=== PATIENT | female | born 2000 | race Caucasian/White ===

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

== ENCOUNTER 2018-11-22 16:15 | Emergency (ER) | payer OTHER ==
[~2018-11-22] VITALS: Ht 165.1 cm; Wt 83.2 kg
[2018-11-22 16:21] VITALS: BP 140/79; TEMP 99.2
[2018-11-22] MEDS ORDERED: ZITHROMAX Z PA250 MG PO (17:59)
[2018-11-22] MEDS ORDERED: PREDNISONE20 MG PO (17:59)
[2018-11-22] MEDS ORDERED: PROAIR HFA0.09 MG/AC IH (18:38)
[2018-11-22 19:19] VITALS: PULSE 94
== END 2018-11-22 19:19 | disposition home or self-care (01) ==
LOC: COL.ER 16:15
DX: J45.909 Unspecified asthma, uncomplicated (principal)
CPT/HCPCS: J7512

== ENCOUNTER 2019-03-04 10:13 | Emergency (ER) | payer SELFPAY ==
[~2019-03-04] VITALS: Ht 165.1 cm; Wt 81.8 kg
[~2019-03-04 10:13] MED LIST changes: +PREDNISONE20 MG PO; +PROAIR HFA0.09 MG/AC IH; +ZITHROMAX Z PA250 MG PO
[2019-03-04 10:20] VITALS: BP 128/65; TEMP 98.6
[2019-03-04] MEDS ORDERED: ILOTYCIN5 MG/GM OP (11:37)
[2019-03-04 11:53] VITALS: PULSE 78
== END 2019-03-04 11:53 | disposition home or self-care (01) ==
LOC: COL.ER 10:13
DX: S09.90XA Unspecified injury of head, initial encounter (principal); H02.846 Edema of left eye, unspecified eyelid; W01.198A Fall on same level from slipping, tripping and stumbling with subsequent striking against other object, initial encounter; Y92.009 Unspecified place in unspecified non-institutional (private) residence as the place of occurrence of the external cause

== ENCOUNTER 2020-03-08 14:55 | Emergency (ER) | payer SELFPAY ==
[~2020-03-08] VITALS: Ht 165.1 cm; Wt 84.1 kg
[~2020-03-08 14:55] MED LIST changes: +ILOTYCIN5 MG/GM OP
[2020-03-08 15:07] VITALS: BP 124/70; TEMP 98.2
[2020-03-08] MEDS ORDERED: TRIAMCINOLONE A15 G2 TP (15:32)
[2020-03-08 15:52] VITALS: PULSE 62
== END 2020-03-08 15:52 | disposition home or self-care (01) ==
LOC: COL.ER 14:55
DX: L20.9 Atopic dermatitis, unspecified (principal); F32.9 Major depressive disorder, single episode, unspecified; Z79.51 Long term (current) use of inhaled steroids

== ENCOUNTER 2020-04-20 11:02 | Emergency (ER) | payer SELFPAY ==
[~2020-04-20] VITALS: Ht 165.1 cm; Wt 81.8 kg
[~2020-04-20 11:02] MED LIST changes: +TRIAMCINOLONE A15 G2 TP
[2020-04-20 11:20] VITALS: TEMP 97.3
[2020-04-20 13:45] VITALS: BP 115/73; PULSE 73
== END 2020-04-20 13:45 | disposition home or self-care (01) ==
LOC: COL.ER 11:02
DX: S63.601A Unspecified sprain of right thumb, initial encounter (principal); X50.9XXA Other and unspecified overexertion or strenuous movements or postures, initial encounter

== ENCOUNTER → 2020-07-25 | Emergency (ER) | payer SELFPAY ==
[~2020-07-25] VITALS: Ht 165.1 cm; Wt 81.8 kg
[~2020-07-25] MED LIST changes: +AMOXICILLIN 8751 TAB PO
[2020-07-25 14:06] VITALS: BP 102/67; TEMP 98.4
[2020-07-25 15:11] VITALS: PULSE 70
== END ==
LOC: COL.ER 13:39
DX: R51.9 Headache, unspecified (principal); Z88.1 Allergy status to other antibiotic agents; Z88.8 Allergy status to other drugs, medicaments and biological substances; Z79.51 Long term (current) use of inhaled steroids

== ENCOUNTER 2021-02-05 16:42 | Emergency (ER) | payer SELFPAY ==
[~2021-02-05] VITALS: Ht 165.1 cm; Wt 65.9 kg
[2021-02-05 16:55] VITALS: TEMP 98.1
[2021-02-05 17:40] LABS: BASO # 0.1 K/mm3 (0.0-0.2); BASO % 0.6 % (0.0-2.0); EOS # 0.6 K/mm3 (0.0-0.7); EOS % 6.2 % (0-4.0); GRAN # 4.7 K/mm3 (1.4-6.5); HEMATOCRIT 38.4 % (37.0-47.0); HEMOGLOBIN 13.1 g/dl (12.5-16.0); LYMPH # 2.9 K/mm3 (1.2-3.4); LYMPH % 32.2 % (20.0-51.0); MEAN CELL VOLUME 84 fl (80.0-100.0); MEAN CORPUSCULAR HEMOGLOBIN 29 pg (27.0-31.0); MEAN CORPUSCULAR HGB CONC 34 g/dl (33.0-37.0); MEAN PLATELET VOLUME 9.8 fl (7.4-10.4); MONO # 0.7 K/mm3 (0.1-0.6); MONO % 7.8 % (1.7-9.3); PLATELET COUNT 337 K/mm3 (130-400); RED BLOOD COUNT 4.57 M/mm3 (4.10-5.30); REDCELL DISTRIBUTION WIDTH-CV 13.2 % (11.5-14.5)
[2021-02-05 18:06] LABS: ALBUMIN 4.3 gm/dL (3.5-5.0); BILIRUBIN,TOTAL 0.2 mg/dL (0.2-1.2); CALCIUM 9.2 mg/dL (8.4-10.2); CREATININE, serum 0.86 mg/dL (0.57-1.11); POTASSIUM 3.9 mmol/L (3.5-4.5); TOTAL PROTEIN 6.8 gm/dL (6.2-8.1)
[2021-02-05 18:58] VITALS: BP 105/73; PULSE 66
== END 2021-02-05 19:00 | disposition home or self-care (01) ==
LOC: COL.ER 16:42
PROVIDERS: Nurse Practitioner
DX: R55 Syncope and collapse (principal)

== ENCOUNTER 2021-04-07 22:17 | Emergency (ER) | payer SELFPAY ==
[~2021-04-07] VITALS: Ht 165.1 cm; Wt 68.2 kg
[2021-04-07 22:18] VITALS: TEMP 97.7
[2021-04-07 23:07] LABS: BASO # 0.1 K/mm3 (0.0-0.2); BASO % 0.7 % (0.0-2.0); EOS # 0.8 K/mm3 (0.0-0.7); EOS % 7.1 % (0.0-4.0); GRAN # 5.4 K/mm3 (1.4-6.5); GRAN % 51.1 % (42.2-75.2); HEMOGLOBIN 11.8 g/dl (12.5-16.0); LYMPH # 3.4 K/mm3 (1.2-3.4); LYMPH % 32.5 % (20.0-51.0); MEAN CELL VOLUME 87 fl (80.0-100.0); MEAN CORPUSCULAR HEMOGLOBIN 29 pg (27-31); MEAN CORPUSCULAR HGB CONC 33 g/dl (33.0-37.0); MEAN PLATELET VOLUME 9.1 fl (7.4-10.4); MONO # 0.8 K/mm3 (0.1-0.6); PLATELET COUNT 326 K/mm3 (130-400); REDCELL DISTRIBUTION WIDTH-CV 13.4 % (11.5-14.5)
[2021-04-07 23:12] LABS: HEMATOCRIT 35.7 % (37.0-47.0)
[2021-04-07 23:25] LABS: ALBUMIN 3.4 gm/dL (3.5-5.0); BILIRUBIN,TOTAL 0.2 mg/dL (0.2-1.2); CREATININE, serum 0.71 mg/dL (0.57-1.11); POTASSIUM 3.4 mmol/L (3.5-4.5); TOTAL PROTEIN 5.9 gm/dL (6.2-8.1)
[2021-04-08 00:53] VITALS: BP 102/57; PULSE 82
== END 2021-04-08 00:53 | disposition home or self-care (01) ==
LOC: COL.ER 22:17
PROVIDERS: Personal Emergency Response Attendant
DX: S09.90XA Unspecified injury of head, initial encounter (principal); W22.8XXA Striking against or struck by other objects, initial encounter
CPT/HCPCS: J2270; J2405; J7030

== ENCOUNTER 2021-07-04 15:07 | Emergency (ER) | payer SELFPAY ==
[~2021-07-04] VITALS: Ht 165.1 cm; Wt 72.7 kg
[2021-07-04 15:15] VITALS: BP 137/68; TEMP 97.1
[2021-07-04 17:18] VITALS: PULSE 78
== END 2021-07-04 17:20 | disposition home or self-care (01) ==
LOC: COL.ER 15:07
DX: S93.401A Sprain of unspecified ligament of right ankle, initial encounter (principal); S93.601A Unspecified sprain of right foot, initial encounter; X50.1XXA Overexertion from prolonged static or awkward postures, initial encounter

== ENCOUNTER 2023-09-07 07:58 | Emergency (ER) | payer SELFPAY ==
[~2023-09-07] VITALS: Ht 165.1 cm; Wt 75.0 kg
[~2023-09-07 07:58] MED LIST changes: +ZOFRAN ODT4 MG PO
[2023-09-07 08:02] VITALS: TEMP 98.1
[2023-09-07] MEDS ORDERED: Albuterol/Ipratropium 3 MG-0.5 MG/3 ML Neb Soln IH ONE (08:15)
[2023-09-07] MEDS ORDERED: methylPREDNISolone Sod Succ 125 MG/2 ML VIAL IV ONE (08:15)
[2023-09-07 08:57] LABS: BASO # 0.1 K/mm3 (0.0-0.2); BASO % 0.6 % (0.0-2.0); EOS # 1.1 K/mm3 (0.0-0.7); EOS % 8.5 % (0.0-4.0); GRAN # 8.8 K/mm3 (1.4-6.5); GRAN % 67.7 % (42.2-75.2); HEMATOCRIT 41.1 % (37.0-47.0); HEMOGLOBIN 13.7 g/dl (12.5-16.0); LYMPH # 2.3 K/mm3 (1.2-3.4); LYMPH % 17.8 % (20.0-51.0); MEAN CELL VOLUME 86 fl (80.0-100.0); MEAN CORPUSCULAR HEMOGLOBIN 29 pg (27-31); MEAN CORPUSCULAR HGB CONC 33 g/dl (33.0-37.0); MEAN PLATELET VOLUME 9.5 fl (7.4-10.4); MONO # 0.7 K/mm3 (0.1-0.6); MONO % 5.1 % (1.7-9.3); PLATELET COUNT 373 K/mm3 (130-400); REDCELL DISTRIBUTION WIDTH-CV 13.2 % (11.5-14.5)
[2023-09-07 09:18] LABS: ALBUMIN 3.9 g/dL (3.5-5.0); BILIRUBIN,TOTAL 0.6 mg/dL (0.2-1.2); CALCIUM 9.7 mg/dL (8.4-10.2); CREATININE, serum 0.76 mg/dL (0.57-1.11); POTASSIUM 4.1 mEq/L (3.5-4.5); TOTAL PROTEIN 7.1 g/dl (6.2-8.1)
[2023-09-07 10:58] VITALS: BP 123/74; PULSE 84
== END 2023-09-07 11:01 | disposition home or self-care (01) ==
LOC: COL.ER 07:58
PROVIDERS: Family Medicine
DX: J45.909 Unspecified asthma, uncomplicated (principal)
CPT/HCPCS: J2919; J3475

== ENCOUNTER 2023-09-25 09:38 | Emergency (ER) | payer OTHER ==
[~2023-09-25] VITALS: Ht 165.1 cm; Wt 77.3 kg
[2023-09-25] MEDS ORDERED: Albuterol/Ipratropium 3 MG-0.5 MG/3 ML Neb Soln IH SCH (10:15)
[2023-09-25 10:20] LABS: BASO # 0.1 K/mm3 (0.0-0.2); BASO % 0.5 % (0.0-2.0); EOS # 0.8 K/mm3 (0.0-0.7); EOS % 5.8 % (0.0-4.0); GRAN # 9.1 K/mm3 (1.4-6.5); GRAN % 68.2 % (42.2-75.2); HEMATOCRIT 41.5 % (37.0-47.0); HEMOGLOBIN 13.5 g/dl (12.5-16.0); LYMPH # 2.6 K/mm3 (1.2-3.4); LYMPH % 19.1 % (20.0-51.0); MEAN CELL VOLUME 85 fl (80.0-100.0); MEAN CORPUSCULAR HEMOGLOBIN 28 pg (27-31); MEAN CORPUSCULAR HGB CONC 33 g/dl (33.0-37.0); MEAN PLATELET VOLUME 9.2 fl (7.4-10.4); MONO # 0.8 K/mm3 (0.1-0.6); PLATELET COUNT 387 K/mm3 (130-400); RED BLOOD COUNT 4.89 M/mm3 (4.10-5.30)
[2023-09-25 10:36] LABS: ALANINE AMINOTRANSFERASE 20 U/L (0-55); ALBUMIN 3.6 g/dL (3.5-5.0); ALKALINE PHOSPHATASE 83 U/L (40-150); ANION GAP 11 mmol/L (7-16); AST,SGOT 13 U/L (5-34); BILIRUBIN,TOTAL 0.5 mg/dL (0.2-1.2); BLOOD UREA NITROGEN 6 mg/dL (7-19); CHLORIDE 108 mEq/L (98-107); CREATININE, serum 0.75 mg/dL (0.57-1.11); GLUCOSE 124 mg/dL (70-99); POTASSIUM 3.6 mEq/L (3.5-4.5); SODIUM 138 mEq/L (136-145); TOTAL PROTEIN 7.7 g/dl (6.2-8.1)
[2023-09-25 10:44] LABS: TROPONIN-I < 0.010 ng/mL (0.00-0.033)
[2023-09-25] MEDS ORDERED: methylPREDNISolone Sod Succ 125 MG/2 ML VIAL IV ONE (11:00)
[2023-09-25] MEDS ORDERED: NS 1,000 ML IV ONE (11:00)
[2023-09-25] MEDS ORDERED: RT ADVAIR HFA 1112 G IH (12:04)
[2023-09-25] MEDS ORDERED: PREDNISONE20 MG PO (12:04)
[2023-09-25 12:16] VITALS: BP 130/84; PULSE 101; TEMP 98.5
== END 2023-09-25 12:16 | disposition home or self-care (01) ==
LOC: COL.ER 09:38
PROVIDERS: Physician Assistant
DX: J45.901 Unspecified asthma with (acute) exacerbation (principal)
CPT/HCPCS: J2919; J7030

== ENCOUNTER 2023-09-25 16:20 | Emergency (ER) | payer OTHER ==
[~2023-09-25] VITALS: Ht 165.1 cm; Wt 77.3 kg
[~2023-09-25 16:20] MED LIST changes: +RT ADVAIR HFA 1112 G IH
[2023-09-25] MEDS ORDERED: Levalbuterol Neb Soln 1.25 MG/3 ML UD IH ONE (16:45)
[2023-09-25] MEDS ORDERED: diphenhydrAMINE 50 MG/ML 1 ML VIAL IV ONE ×2 (16:45→17:00)
[2023-09-25] MEDS ORDERED: methylPREDNISolone Sod Succ 125 MG/2 ML VIAL IV ONE (16:45)
[2023-09-25] MEDS ORDERED: NS 1,000 ML IV ONE ×2 (16:45→18:30)
[2023-09-25] MEDS ORDERED: LORazepam 2 MG/ML 1 ML VIAL IV ONE (17:00)
[2023-09-25 19:58] VITALS: BP 115/79; PULSE 116; TEMP 98.7
== END 2023-09-25 20:00 | disposition home or self-care (01) ==
LOC: COL.ER 16:20
DX: T78.40XA Allergy, unspecified, initial encounter (principal); R00.0 Tachycardia, unspecified; Z87.891 Personal history of nicotine dependence
CPT/HCPCS: J1200; J2060; J2919; J7030

== ENCOUNTER 2023-10-08 13:27 | Inpatient (IN) | payer OTHER ==
[2023-10-07 20:00] VITALS: BP 119/70; PULSE 137; TEMP 98.4
[2023-10-08] VITALS (115 sets, daily range): BP systolic 135–137; BP diastolic 76–79; PULSE 124–134; TEMP 98.1–98.2; O2SAT 90–97
[~2023-10-08] VITALS: Ht 165.1 cm; Wt 84.6 kg
[2023-10-08 13:59] LABS: BASO # 0.1 K/mm3 (0.0-0.2); BASO % 0.5 % (0.0-2.0); EOS # 1.9 K/mm3 (0.0-0.7); EOS % 10.3 % (0.0-4.0); GRAN # 11.5 K/mm3 (1.4-6.5); HEMOGLOBIN 13.6 g/dl (12.5-16.0); LYMPH # 3.4 K/mm3 (1.2-3.4); LYMPH % 18.6 % (20.0-51.0); MEAN CELL VOLUME 85 fl (80.0-100.0); MEAN CORPUSCULAR HEMOGLOBIN 28 pg (27-31); MEAN CORPUSCULAR HGB CONC 32 g/dl (33.0-37.0); MONO # 1.3 K/mm3 (0.1-0.6); MONO % 7.2 % (1.7-9.3); PLATELET COUNT 470 K/mm3 (130-400); RED BLOOD COUNT 4.92 M/mm3 (4.10-5.30); REDCELL DISTRIBUTION WIDTH-CV 12.8 % (11.5-14.5)
[2023-10-08] MEDS ORDERED: Ipratropium 0.02% Neb Soln 0.5 MG/2.5 ML UD IH ONE (14:00)
[2023-10-08] MEDS ORDERED: dexAMETHasone 4 MG TAB PO ONE (14:00)
[2023-10-08] MEDS ORDERED: LR 1,000 ML IV ONE (14:00)
[2023-10-08] MEDS ORDERED: Albuterol 0.083% Neb Soln 2.5 MG/3 ML UD IH ONE ×2 (14:00→14:30)
[2023-10-08 14:14] LABS: ALBUMIN 3.9 g/dL (3.5-5.0); BILIRUBIN,TOTAL 0.3 mg/dL (0.2-1.2); CALCIUM 9.6 mg/dL (8.4-10.2); CREATININE, serum 0.78 mg/dL (0.57-1.11); POTASSIUM 4.1 mEq/L (3.5-4.5); TOTAL PROTEIN 7.4 g/dl (6.2-8.1)
[2023-10-08] MEDS ORDERED: Azithromycin 250 MG TAB PO ONE (14:30)
[2023-10-08] MEDS ORDERED: BUSPAR5 MG PO (15:38)
[2023-10-08] MEDS ORDERED: PROAIR HFA0.09 MG/AC IH (15:40)
[2023-10-08] MEDS ORDERED: Doxycycline Monohydrate 100 MG CAP PO SCH (15:56)
[2023-10-08] MEDS ORDERED: Acetaminophen 500 MG TAB PO PRN (16:00)
[2023-10-08] MEDS ORDERED: 1/2 NS 1,000 ML IV SCH (16:00)
[2023-10-08] MEDS ORDERED: Albuterol/Ipratropium 3 MG-0.5 MG/3 ML Neb Soln IH PRN (16:00)
[2023-10-08] MEDS ORDERED: Ondansetron 4 MG/2 ML VIAL IV PRN (16:00)
--- NOTE | 2023-10-08 16:00 | NUR ---
Patient arrived from ER at approximately this time. Patient experiencing SOA, on 2L /. patient is tachycardic,Patient unable to complete sentences and reports not eating at times due to difficulty breathing. Patient reports chest pain/ pressure that worsen when deep breathing.Patient intake assessment completed. call light within reach, bed at lowest position.
[2023-10-08] MEDS ORDERED: cefTRIAXone 1 G in Water For Injection,Sterile 10 ML IV SCH (16:30)
[2023-10-08 16:55] LABS: ARTERIAL BLD GAS O2 SATURATION 93.2 % (92-100); ARTERIAL BLD GAS TCO2 CT 20.1; ARTERIAL BLOOD GAS BASE EXCESS -3.4 (-2-2); ARTERIAL BLOOD GAS HCO3 19.2 meq/L (22-26); ARTERIAL BLOOD GAS PCO2 28.3 mmHg (35-45); ARTERIAL BLOOD GAS pH 7.45 (7.35-7.45)
[2023-10-08] MEDS ORDERED: LORazepam 2 MG/ML 1 ML VIAL IV PRN (17:15)
[2023-10-08] MEDS ORDERED: Iohexol 300 - 100 ML VIAL IV ONE (17:48)
[2023-10-08] MEDS ORDERED: NS 50 ML IV SCH (17:48)
--- NOTE | 2023-10-08 18:09 | NUR ---
patient transfered to ICU and bedside report given to nurse taking care of patient.
--- NOTE | 2023-10-08 18:21 | NUR ---
Pt arrived to ICU at 1800 with YOBANY Ybarra at bedside. Pt taken to CT scan before arrival to ICU. Pt settled in bed after using bathroom. Urine sample obtained. YOBANY Espino provided bedside report after getting pt settled in room. Pt is pleasant and cooperative. Pt does not have any complaints of pain or discomfort at this time. 1815 Oxygen amount increased to 4 L per nasal cannula from 2 L via nasal cannula
[2023-10-08] MEDS ORDERED: ATIVAN 1MG T1 MG/TAB PO (18:32)
--- NOTE | 2023-10-08 18:33 | NUR ---
Pt has a prescription for ativan and verbalizes that she is supposed to take it. Pt verbalized that she is unable to afford the medication, so she has not been taking it for a month.
[2023-10-08] MEDS ORDERED: Albuterol/Ipratropium 3 MG-0.5 MG/3 ML Neb Soln IH SCH (19:00)
--- NOTE | 2023-10-08 20:01 | NUR ---
PATIENT RESTING IN BED, WITH FAMILY AT BEDSIDE. PATIENT IS ANXIOUS AND TACHYCARDIC. IV IN RIGHT AC WITH FLUIDS RUNNING. PATIENT IS A STAND BY ASSIST. NO ACUTE EVENTS.
[2023-10-08] MEDS ORDERED: busPIRone 5 MG TAB PO SCH (21:00)
[2023-10-08] MEDS ORDERED: LORazepam 2 MG/ML 1 ML VIAL IV ONE (22:00)
[2023-10-09] VITALS (309 sets, daily range): BP systolic 106–128; BP diastolic 65–87; PULSE 98–117; TEMP 97.5–98.6; O2SAT 86–99
--- NOTE | 2023-10-09 00:16 | NUR ---
PATIENT EXPLAINED TO THIS RN, THAT SHE FEELS LIKE SHE HAS BEEN IGNORED WITH HER BREATHING CONCERNS THE LAST TWO MONTHS AND EXPRESSES FEAR OVER NOT BEING ABLE TO BREATHE. PATIENT STATES SHE DOES NOT HAVE ENOUGH MONEY FOR AN INHALER. THIS RN INFORMED THE PATIENT THAT [facility] HAS RESOURCES FOR THIS AND OUTSIDE SALESPERSON CAN ASSIST HER WITH THESE ISSUES. SHE EXPLAINS SHE HAS CHEST PAIN IN HER STERNUM RATED 5/10 FOR PAIN, THAT FEELS LIKE SOMEONE IS PICKING HER UP AND SQUEEZING HER CHEST AND RADIATES TO BELOW HER BREASTS. TALKING AND EXERTION MAKES THE PAIN WORSE. PT SAYS WHEN GOING TO THE BATHROOM AT HOME SHE HAS TO STOP AND CATCH HER BREATH TWICE. SHE STATED WHEN DOING HER HAIR, HER SPO2 DROPPED TO 85% ACCORDING TO HER PULSE OX AT HOME. PT SAYS THIS FEELS LIKE MORE THAN ASTHMA AND ALLERGIES. PATIENT VISIBLY DISTRESSED AND SHORT OF BREATH DURING OUR CONVERSATION. PATIENT UNABLE TO TOLERATE CPAP DUE TO HER ANXIETY AND CLAUSTROPHOBIA, PATIENT SPO2 WAS FINE ON NASAL CANNULA. PATIENT RESTING HEART RATE IN THE 120'S EVEN WHILE SLEEPING (WITHOUT ALBUTEROL), THIS RN WONDERING IF PATIENT HAS CARDIAC ISSUES.
--- NOTE | 2023-10-09 03:24 | NUR ---
PT REFUSED TO WEAR CPAP.PT STATED SHE IS CLAUSTROPOBIC.
[2023-10-09 04:43] LABS: BASO % 0.1 % (0.0-2.0); GRAN % 85.5 % (42.2-75.2); HEMOGLOBIN 11.7 g/dl (12.5-16.0); LYMPH # 1.3 K/mm3 (1.2-3.4); LYMPH % 8.7 % (20.0-51.0); MEAN CELL VOLUME 85 fl (80.0-100.0); MEAN CORPUSCULAR HEMOGLOBIN 27 pg (27-31); MEAN CORPUSCULAR HGB CONC 32 g/dl (33.0-37.0); MEAN PLATELET VOLUME 9.1 fl (7.4-10.4); MONO # 0.8 K/mm3 (0.1-0.6); MONO % 5.3 % (1.7-9.3); PLATELET COUNT 380 K/mm3 (130-400); RED BLOOD COUNT 4.29 M/mm3 (4.10-5.30)
[2023-10-09 04:50] LABS: HEMATOCRIT 36.3 % (37.0-47.0)
[2023-10-09 05:02] LABS: C-REACTIVE PROTEIN 2.84 mg/dL (0.00-0.50); CALCIUM 10.1 mg/dL (8.4-10.2); CREATININE, serum 0.68 mg/dL (0.57-1.11); POTASSIUM 4.5 mEq/L (3.5-4.5)
--- NOTE | 2023-10-09 07:47 | NUR ---
Patient is resting in bed, eyes closed, easily arousable. She is alert and oriented, VSS, no complications with IV, 60 ml/hr of 0.45 NS infusing, using BSC. States she is not in distress this AM and feels somewhat better than yesterday. There are some concerns about this being a cardiac issue vs. a pulmonary issue on top of the anxiety and SOA. At this time, she is mildly anxious. Will continue to monitor and request for increase in medications to help manage anxiety.
[2023-10-09] MEDS ORDERED: Mometasone/Formoterol 200/5 MCG MDI IH SCH (09:06)
--- NOTE | 2023-10-09 12:40 | NUR ---
rEPORT GIVEN TO YOBANY Matta, PATIENT STABLE, VSS, ON ROOM AIR, ALERT AND ORIENTED X4. TAKEN TO MEDICAL ROOM 309 VIA WHEELCHAIR AND MANAGER TEST.
--- NOTE | 2023-10-09 13:20 | NUR ---
PT ON FLOOR VIA WHEELCHAIR. PT ON ROOM AIR AND DENIES PAIN OR SHORTNESS OF BREATH AT THIS TIME. PT INDEPENDENT IN ROOM. PT ORIENTED TO ROOM, CALL LIGHT, TV, SMOKING POLICY AND VERBALIZED UNDERSTANDING. PT DENIES NEEDS. BED IN LOWEST POSITION, CALL LIGHT IN REACH.
--- NOTE | 2023-10-09 13:22 | NUR ---
D: [employer] Analyst stopped by room on rounds. A: Pt was resting and content. No needs right now. P: [employer] Analyst informed pt that if she needed anything from the blocking machine tender area to let her nurse know. [employer] Analyst will follow up as needed.
[2023-10-09] MEDS ORDERED: dexAMETHasone 10 MG/ML VIAL IV SCH (14:00)
--- NOTE | 2023-10-09 15:25 | NUR ---
research worker kitchen met with patient to complete discharge planning assessment. Patient states she lives alone in [place] and is a [employer]er at the [employer]. Patient states she has [employer] insurance that doesn't cover her precriptions and she hasn't been able to obtain much needed inhalers. Patient stated that she has left messages at [employer] with no luck. Worker left a message for [employer] to call. Patient states that she will search for better insurances on the [employer]. Patient states that her primary care provider is Dr Gambino. Patient states she has friends that are supportive for her in [place]. Patient states she doesn't have advance directives and is interested in obtaining the forms to review. Worker collaborated with Mary social and human services assistant and Beena social work student to provide advance directive documents and good Rx card. Patient plans to discharge home. Discharge plan: Home
[2023-10-09 17:14] LABS: IMMUNOGLOBULIN A 133 mg/dL (65-421); IMMUNOGLOBULIN G 810 mg/dL (552-1631)
[2023-10-09] MEDS ORDERED: LORazepam 1 MG TAB PO PRN (21:45)
[2023-10-10] VITALS (10 sets, daily range): BP systolic 99–119; BP diastolic 67–76; PULSE 87–123; TEMP 98–98.4
--- NOTE | 2023-10-10 04:57 | NUR ---
NURSING SHIFT ASSESSMENT COMPLETED. THE PATIENT WAS ALERT AND ORIENTED. THE PLAN OF CARE AND EVENING MEDICATIONS REVIEWED. THE PATIENT DENIED ANY PAIN OR DISCOMFORT. THE PATIENT STATED THAT SHE DOES FEEL A LITTLE SHORT OF BREATH WITH ACTIVITY. THE PATIENT REMAINS ON RA AT THIS TIME WITH OXYGEN SATS IN THE MID 90s. NO RESP DISTRESS NOTED AT THIS TIME.
[2023-10-10 06:08] LABS: BASO % 0.2 % (0.0-2.0); EOS % 0.2 % (0.0-4.0); GRAN # 9.8 K/mm3 (1.4-6.5); GRAN % 74.1 % (42.2-75.2); HEMOGLOBIN 11.2 g/dl (12.5-16.0); LYMPH # 2.7 K/mm3 (1.2-3.4); LYMPH % 20.2 % (20.0-51.0); MEAN CELL VOLUME 86 fl (80.0-100.0); MEAN CORPUSCULAR HEMOGLOBIN 28 pg (27-31); MEAN CORPUSCULAR HGB CONC 32 g/dl (33.0-37.0); MEAN PLATELET VOLUME 9.4 fl (7.4-10.4); MONO # 0.6 K/mm3 (0.1-0.6); MONO % 4.8 % (1.7-9.3); PLATELET COUNT 421 K/mm3 (130-400); RED BLOOD COUNT 4.05 M/mm3 (4.10-5.30); REDCELL DISTRIBUTION WIDTH-CV 13.2 % (11.5-14.5)
[2023-10-10 06:14] LABS: HEMATOCRIT 34.9 % (37.0-47.0)
[2023-10-10 06:32] LABS: CALCIUM 8.7 mg/dL (8.4-10.2); CREATININE, serum 0.67 mg/dL (0.57-1.11); POTASSIUM 3.6 mEq/L (3.5-4.5)
--- NOTE | 2023-10-10 08:30 | NUR ---
PT AWAKE IN BED UPON ENTERING ROOM. PT TEARFUL AND EXPLAINS THAT SHE'S FRUSTRATED WITH THE LACK OF ANSWERS FROM THIS HOSPITAL STAY. STATES THAT SHE IS SOA ON EXERTION EVEN WHEN GOING TO THE TOILET IN ROOM. PT DID NOT APPEAR ANXIOUS TO THIS NURSE. PRN ATIVAN OFFERED. SCHEDULED MEDS GIVEN PER eMAR. DENIES PAIN. NO FUTHER CONCERNS. CALL LIGHT WITHIN REACH.
--- NOTE | 2023-10-10 21:00 | NUR ---
NURSING SHIFT ASSESSMENT COMPLETED. THE PATIENT WAS ALERT AND ORIENTED. THE PATIENT REMAINS ON ROOM AIR. SOME DYSPNEA WITH EXERTION, BUT THIS IS IMPROVING. THE PATIENT DENIES PAIN OR DISCOMFORT. FRESH WATER PROVIDED. NO OTHER NEEDS AT THIS TIME. CALL LIGHT AND PERSONAL BELONGINGS WITHIN REACH. THE PATIENT IS UP INDEPENDENTLY IN THE ROOM.
[2023-10-11 03:29] VITALS: BP 107/74; PULSE 95; TEMP 98.1
[2023-10-11 05:00] VITALS: BP_SYST 143
--- NOTE | 2023-10-11 07:15 | NUR ---
PATIENT ASLEEP, RESTING IN BED. PATIENT AROUSES EASILY TO NAME, CALL LIGHT WITHIN REACH, PATIENT DENIES ANY NEEDS OR COMPLAINTS AT THIS TIME. PATIENT VOICES BEING READY TO DC. PER PATIENT PRODUCTIVE COUGH, YELLOW SPUTUM, SHE FEELS SHE IS ABLE TO GET IN BETTER RESPIRATIONS.
[2023-10-11 07:47] VITALS: BP 143/75; PULSE 98; TEMP 97.9
[2023-10-11 09:00] VITALS: BP_SYST 143
[2023-10-11] MEDS ORDERED: MONODOX100 PO (09:41)
[2023-10-11] MEDS ORDERED: DULERA1 AR1 IH (09:41)
--- NOTE | 2023-10-11 09:44 | NUR ---
IV REMOVED. PATINET DRESSING FOR DISCHARGE
[2023-10-11] MEDS ORDERED: PREDNISONE20 MG PO (09:57)
--- NOTE | 2023-10-11 10:20 | NUR ---
PATIENT GIVEN DISCHARGE INSTRUCTIONS AND EDUCAITON. PATIENT VERBALIZES UNDERSTANDING OF NEW MEDICAITONS AND EXPECTED FOLLOW UP APTS. PATIENT TAKEN TO ER ENTRANCE WHERE SHE LEFT IN STABLE CONDITION WITH HER PARTNER.
--- NOTE | 2023-10-12 12:13 | NUR ---
transportation worker contacted Thao at [facility] and the patient. Worker arranged for the patient to contact Thao now to get financial assistance for her inhalers.
[2023-10-15 14:12] LABS: ASPERGILLUS FUM ALLR IGE COUNT <0.10 kU/L (Class 0); BERMUDA GRASS ALLERGEN IGE CNT <0.10 kU/L (Class 0); BOX ELDER/MAPL ALLERGN IGE CNT <0.10 kU/L (Class 0); CAT DANDER ALLERGEN IGE COUNT 8.23 kU/L (Class IV); CLADOSPORIUM ALLERGN IGE COUNT <0.10 kU/L (Class 0); COCKROACH ALLERGEN CLASS <0.10 kU/L (Class 0); COTTONWOOD ALLERGEN IGE COUNT <0.10 kU/L (Class 0); DOG DANDER ALLERGEN IGE COUNT 0.36 kU/L (Class I); DUST MT D.P. ALLERGN IGE COUNT 0.87 kU/L (Class II); ELM ALLERGEN IGE COUNT <0.10 kU/L (Class 0); FIREBUSH ALLERGEN IGE COUNT <0.10 kU/L (Class 0); OAK ALLERGEN IGE COUNT <0.10 kU/L (Class 0); ROUGH MRSH ELDR ALRG IGE COUNT <0.10 kU/L (Class 0); RUSSIAN THIS ALLERGN IGE COUNT <0.10 kU/L (Class 0); SHORT RAGWED ALLERGN IGE COUNT <0.10 kU/L (Class 0)
== END 2023-10-11 10:30 | disposition home or self-care (01) | DRG 196 ==
LOC: COL.ER 13:27 → MEDICAL 15:12 → ICU 17:55 → MEDICAL 10-09 13:17
PROVIDERS: Emergency Medicine; Internal Medicine; Internal Medicine Sleep Medicine; ADMIT Internal Medicine
PROC: 5A09357 Assistance with Respiratory Ventilation, Less than 24 Consecutive Hours, Continuous Positive Airway Pressure (ICD-10-PCS; principal; 2023-10-08)
DX: J67.9 Hypersensitivity pneumonitis due to unspecified organic dust (principal); J96.01 Acute respiratory failure with hypoxia; F41.9 Anxiety disorder, unspecified; J45.998 Other asthma; D72.10 Eosinophilia, unspecified; Z79.899 Other long term (current) drug therapy; Z88.8 Allergy status to other drugs, medicaments and biological substances
CPT/HCPCS: A9270; J0696; J1100; J2060; J7120; J8540; Q9967